=== PATIENT | female | born 1980 | race Two or more races ===

== ENCOUNTER 2016-11-30 18:20 | Emergency (ER) | payer BC ==
--- NOTE | 2016-11-30 18:59 | Emergency Department Record ---
History of Present Illness - General Chief Complaint: Laceration(s) Stated Complaint: LAC ON R HAND Time Seen by Provider: 11/30/16 18:53 Source: Patient Mode of Arrival: Ambulatory Limitations: No limitations - History of Present Illness Initial Commments: 36 yo female presents with a laceration to the right hand. She cut it on broken sharp glass in her kitchen. She is right handed. No loss of function, ROM, or sensation. She did not see any FB in the lac. Onset/Timin -: Minutes(s) Extremity Location: Right: Hand Place: Home Context: Accidental Associated Symptoms: None Treatments Prior to Arrival: Bandage - [place] Coma Scale Eye Response: (4) Open spontaneously Motor Response: (6) Obeys commands Verbal Response: (5) Oriented [place] Total: 15 - Related Data Hx Tetanus Toxoid Vaccination: No Patient Tetanus UTD (within 5 yrs): No Home Medications Medication Instructions Recorded Confirmed Last Taken No Home Med [NO HOME MEDS] 11/30/16 11/30/16 Unknown Allergies Allergy/AdvReac Type Severity Reaction Status Date / Time adhesive Allergy Severe ITCHING Verified 11/30/16 18:47 Travel Screening - Travel/Exposure Within Last 30 Days Have you traveled within the last 30 days?: No Review of Systems Constitutional: Denies: Chills, Fever, Weakness Eyes: Denies: Vision change ENT: Denies: Congestion, Ear pain Respiratory: Denies: Cough Cardiovascular: Denies: Chest pain Endocrine: Denies: Fatigue Gastrointestinal: Denies: Abdominal pain, Diarrhea, Nausea, Vomiting Genitourinary: Denies: Dysuria, Frequency Musculoskeletal: Denies: Arthralgia, Joint swelling, Myalgia Skin: Reports: As per HPI, Other Neurological: Denies: Headache Psychiatric: Denies: Anxiety Hematological/Lymphatic: Denies: Easy bleeding, Easy bruising Past Medical History - SOCIAL HISTORY Smoking Status: Current every day smoker Alcohol Use: None Drug Use: None - RESPIRATORY Hx Respiratory Disorders: No - CARDIOVASCULAR Hx Cardio Disorders: No - NEURO Hx Neuro Disorders: No - GI Hx GI Disorders: No - Hx Genitourinary Disorders: Yes Hx Kidney Stones: Yes - ENDOCRINE Hx Endocrine Disorders: No - MUSCULOSKELETAL Hx Musculoskeletal Disorders: No - PSYCH Hx Psych Problems: No - HEMATOLOGY/ONCOLOGY Hx Hematology/Oncology Disorders: No Family Medical History Any Significant Family History?: No Physical Exam - General General Appearance: Alert, Oriented x3, Cooperative, No acute distress - Head Head exam: Atraumatic, Normal inspection - Eye Eye exam: Normal appearance - ENT ENT exam: Normal exam Ear exam: Normal external inspection Nasal Exam: Normal inspection Mouth exam: Normal external inspection - Neck Neck exam: Normal inspection - Cardiovascular Cardiovascular Exam: Regular rate, Normal rhythm, Normal heart sounds Peripheral Pulses: 2+: Radial (R) - Extremities Extremities exam: Full ROM, Normal capillary refill. negative: Normal inspection, Joint swelling, Tenderness Image of Hand: 1 - 1.4cm clean linear laceration, medial to the extensor tendon, full extension without pain, no numbness or tingling distally, NO FB visible - Back Back exam: Reports: Full ROM - Neurological Neurological exam: Alert, Normal gait, Oriented X3, Reflexes normal - Psychiatric Psychiatric exam: Normal affect, Normal mood - Skin Type of lesion: Laceration Course Vital Signs 11/30/16 18:41 Temperature 98.2 F Pulse Rate 71 Respiratory 16 Rate Blood Pressure 113/69 Pulse Ox 98 - Reevaluation(s) Reevaluation #1: No FB on examination Normal tendon fxn with full extension No sensory changes betadine Prep Lidocaine with 1% epi 1ml local XR ordered 11/30/16 19:00 Reevaluation #2: Suture Repair Irrigation with NS copiously No FB Prolene 4-0 #4 tolerated well We discussed home care and follow up signs and symptoms XR negative 11/30/16 19:22 11/30/16 19:23 Disposition Disposition: Discharge Clinical Impression: Laceration of hand Qualifiers: Encounter type: initial encounter Foreign body presence: without foreign body Laterality: right Qualified Code(s): S61.411A - Laceration without foreign body of right hand, initial encounter Disposition: Home, Self-Care Condition: (1) Good Instructions: Laceration (ED) Additional Instructions: Return in 7 days for suture removal Return sooner if pain, pus, red, draining, pain with movement or any new concerns. Forms: Patient Portal Access Time of Disposition: :
[2016-11-30] MEDS ORDERED: Diph,Pert(Acell),Tet Vac 0.5 ML SYR IM ONE (19:38)
== END 2016-11-30 19:48 | disposition home or self-care (01) ==
LOC: ER 18:20
DX: S61.411A Laceration without foreign body of right hand, initial encounter (principal); W25.XXXA Contact with sharp glass, initial encounter; Y92.000 Kitchen of unspecified non-institutional (private) residence as the place of occurrence of the external cause
CPT/HCPCS: 12001; 90715; 96372; 99283; 99284

== ENCOUNTER 2016-12-07 14:19 | Emergency (ER) | payer BC ==
--- NOTE | 2016-12-07 14:38 | Emergency Department Record ---
History of Present Illness - General Chief Complaint: Suture removal Stated Complaint: SUTURE REMOVAL Time Seen by Provider: 12/07/16 14:28 Source: Patient, Family Mode of arrival: Ambulatory Limitations: No limitations - History of Present Illness Initial Comments: 36 yo female presents for a wound check and suture removal from a right hand laceration. No concerns since the repair. No pain or redness. No swelling. She has full ROM without limits. No numbness or tingling. MD Complaint: Suture/staple removal -: Week(s) (1) Initial Visit For: Laceration Returns Today for: Needs work/school note, Staple/stitch removal, Wound recheck Symptoms Since Prior Visit: No new symptoms Associated Symptoms: None - Related Data Home Medications Medication Instructions Recorded Confirmed Last Taken No Home Med [NO HOME MEDS] 11/30/16 11/30/16 Unknown Allergies Allergy/AdvReac Type Severity Reaction Status Date / Time adhesive Allergy Severe ITCHING Verified 11/30/16 18:47 Review of Systems Constitutional: Denies: Chills, Fever Musculoskeletal: Denies: Arthralgia, Myalgia Skin: Denies: Change in color, Rash Past Medical History - SOCIAL HISTORY Smoking Status: Current every day smoker Drug Use: None - RESPIRATORY Hx Respiratory Disorders: No - CARDIOVASCULAR Hx Cardio Disorders: No - NEURO Hx Neuro Disorders: No - GI Hx GI Disorders: No - Hx Genitourinary Disorders: Yes Hx Kidney Stones: Yes - ENDOCRINE Hx Endocrine Disorders: No - MUSCULOSKELETAL Hx Musculoskeletal Disorders: No - PSYCH Hx Psych Problems: No - HEMATOLOGY/ONCOLOGY Hx Hematology/Oncology Disorders: No Physical Exam - General General Appearance: Alert, Oriented x3, Cooperative - Head Head exam: Normal inspection - Eye Eye exam: Normal appearance - ENT ENT exam: Normal exam Ear exam: Normal external inspection Nasal Exam: Normal inspection - Neck Neck exam: Normal inspection - Cardiovascular Peripheral Pulses: 2+: Radial (R) - Extremities Extremities exam: Normal inspection, Full ROM, Normal capillary refill. negative: Tenderness Image of Hand: 1 - no swelling or erythema, slight superficial gap, deeper layer intact without signs of infection - Neurological Neurological exam: Alert - Psychiatric Psychiatric exam: negative: Agitated, Anxious - Skin Type of lesion: Laceration Course - Reevaluation(s) Reevaluation #1: sutures removed without difficulty the very superficial layer had minimal gap, deep layers healing well. steristrips placed for additional healing time 12/07/16 14:38 Disposition Disposition: Discharge Clinical Impression: Visit for suture removal Disposition: Home, Self-Care Condition: (1) Good Instructions: Suture Removal (ED) Additional Instructions: Keep the area dry and clean Return if pain, red, pus or any new concerns You may return to work. Keep covered and protected Forms: Patient Portal Access Time of Disposition: 14:31
== END 2016-12-07 14:49 | disposition home or self-care (01) ==
LOC: ER 14:19
DX: Z48.02 Encounter for removal of sutures (principal)